=== PATIENT | female | born 1950 | race Caucasian/White ===

== ENCOUNTER 2017-07-06 01:57 | Emergency (ER) | payer MEDICARE, OTHER ==
[~2017-07-06] VITALS: Ht 172.7 cm; Wt 80.0 kg
[~2017-07-06 01:57] MED LIST: ASPI81TA11 PO; ATOR20TA42 PO; CARI350T19 PO; IBUP800T23 PO
[2017-07-06 02:08] VITALS: BP 224/95; PULSE 61; RESP 16; TEMP 97.6; O2SAT 97
--- NOTE | 2017-07-06 02:36 | PD ---
HPI Chief Complaint: Dizziness Time Seen by Provider: 02:27 Travel History International Travel<30 days: No Contact w/Intl Traveler<30days: No Traveled to known affect area: No History of Present Illness HPI Patient is a 67-year-old female presents emergency department for evaluation of dizziness. Patient states that started fairly suddenly this morning. She states it has been going on intermittently for the past 24 hours. She states worsening whenever she is in a supine position and turns her head. She also endorses some mild diarrhea which is resolved and thought maybe this was contributing to it. No chest pain or shortness of breath no focalized weakness no difficulty ambulating. She states it feels like the room spinning around her. Symptoms moderate, intermittent, associated signs symptoms as above aggravated by movement and alleviated by rest. PFSH Past Medical History High Cholesterol: Yes Diminished Hearing: No Hypertension: Yes Musculoskeletal: Yes (chronic back pain) Tetanus Vaccination: Unknown Influenza Vaccination: No ?: Not LMP: menapause Past Surgical History Surgical History: No Previous Surgery Social History Alcohol Use: No Tobacco Use: Yes (/2 PPD) Substance Use: No Allergies-Medications (Allergen,Severity, Reaction): Coded Allergies: No Known Allergies (Unverified Adverse Reaction, Unknown, 07/06/17) Reported Meds & Prescriptions Reported Meds & Active Scripts Active Meclizine (Meclizine HCl) 25 Mg Tab 25 Mg PO TID PRN Review of Systems Except as stated in HPI: all other systems reviewed are Neg Physical Exam Narrative GENERAL: Well-nourished, well-developed patient. SKIN: Focused skin assessment warm/dry. HEAD: Normocephalic. EYES: No scleral icterus. No injection or drainage. ENT: TMs clear bilaterally, oropharynx clear moist. NECK: Supple, trachea midline. No JVD or lymphadenopathy. CARDIOVASCULAR: Regular rate and rhythm without murmurs, gallops, or rubs. RESPIRATORY: Breath sounds equal bilaterally. No accessory muscle use. GASTROINTESTINAL: Abdomen soft, non-tender, nondistended. MUSCULOSKELETAL: No cyanosis, or edema. Neurological: Cranial nerves II through XII grossly intact and nonfocal, 5 out of 5 strength in all 4 extremities, cerebellar testing with [id number] and heel noonan testing negative, ambulates with an even narrow-base gait. BACK: Nontender without obvious deformity. No CVA tenderness. Data Data Last Documented VS Vital Signs Date Time Temp Pulse Resp B/P (MAP) Pulse Ox O2 Delivery O2 Flow Rate FiO2 07/06/17 02:08 97.6 61 16 224/95 (138) 97 Orders Orders Meclizine (Antivert) (07/06/17 02:45) Diazepam (Valium) (07/06/17 02:45) Ed Discharge Order (07/06/17 04:35) MDM Medical Decision Making Medical Screen Exam Complete: Yes Emergency Medical Condition: Yes Differential Diagnosis Vertigo, cerebellar stroke unlikely, electrolyte abdomen highly unlikely, hypertensive emergency unlikely. Narrative Course Patient room to the emergency department, she appears well in no obvious distress. Symptoms positional highly consistent with vertigo. Given meclizine and Valium and symptoms were completely relieved. She is very grateful. I do not think there is any indication further workup with this patient at this time. Discussed need follow-up with an ear nose and throat doctor symptomatic management at home, Dayan maneuver handout given. She is stable for discharge Discussed with the patient her blood pressure is significantly elevated and needs further management as an outpatient. Discussed follow-up with the [facility]. No indication to emergently lower her blood pressure is not having any signs of endorgan failure peer Diagnosis Primary Impression: Vertigo Additional Impression: Hypertension Referrals: Benito Garcia MD [facility] Med/Other Pt SpecificInfo: Prescription(s) given Scripts Meclizine (Meclizine) 25 Mg Tab 25 MG PO TID Y for VERTIGO, #20 TAB 0 Refills Prov: Buddy Munoz MD 07/06/17 Disposition: 01 DISCHARGE HOME Condition: Stable Buddy Munoz MD July 06, 2017 02:36
[2017-07-06] MEDS ORDERED: MECLIZINE HCL 25 MG TAB PO ONE (02:45)
[2017-07-06] MEDS ORDERED: DIAZEPAM 5 MG TAB PO ONE (02:45)
[2017-07-06] MEDS ORDERED: MECL-62 PO (04:25)
== END 2017-07-06 04:57 | disposition home or self-care (01) ==
LOC: NEPC 01:57
DX: R42 Dizziness and giddiness (principal); I10 Essential (primary) hypertension; F17.200 Nicotine dependence, unspecified, uncomplicated
CPT/HCPCS: 99283

== ENCOUNTER 2017-10-31 23:44 | Observation (INO) ==
--- NOTE | 2017-11-01 00:06 | ED ---
HPI General Chief complaint: Chest Pain Stated complaint: chest pain/sob Time Seen by Provider: 11/01/17 00:04 Source: patient History of Present Illness HPI narrative: The patient is a 67 year old female who presents to the [facility] emergency department with a history of hypertension and chronic back pain c/o left chest wall pain. The pain began 3 weeks ago, intermittently, as a sharp, shooting pain. Today it became acutely worse, /10, which brought her to seek care. She also endorses a non-productive cough, lymph node swelling and sore throat for 3 weeks duration for which she was seen by her primary and given amoxicillin 875 mg TID. The pateint denies having any prior history of coronary artery disease. She reports that she last had a stress test approximately 3 years ago. The patient reports having a history of tobacco use and hypertension. She denies having any prior history of DVT or PE. Related Data Home Medications Medication Instructions Recorded Confirmed amoxicillin 875 mg PO TID 11/01/17 11/01/17 meclizine 25 mg PO TID PRN 11/01/17 11/01/17 Allergies Allergy/AdvReac Type Severity Reaction Status Date / Time No Known Allergies Unknown Uncoded 07/06/17 02:08 Review of Systems Constitutional Denies body ache(s), Denies excessive sweating, Denies fatigue, Denies fever(s) and Denies weakness Eyes Denies blurry vision and Denies change in vision ENT Reports system reviewed and no additional complaints, except as [facility] Cardiovascular Reports system reviewed and no additional complaints, except as [facility], Denies syncope, Denies leg edema, Denies lightheadedness, Denies radiating jaw, neck or arm pain, Denies palpitations and Denies dyspnea Respiratory Reports cough, Denies hemoptysis, Reports excessive phlegm production and Reports pain with cough Gastrointestinal Reports system reviewed and no additional complaints, except as [facility] Genitourinary Reports system reviewed and no additional complaints, except as [facility] Musculoskeletal Reports back pain Integumentary/Breasts Reports system reviewed and no additional complaints, except as [facility] Neurologic Reports system reviewed and no additional complaints, except as [facility] Psychiatric Reports system reviewed and no additional complaints, except as [facility] Endocrine Reports system reviewed and no additional complaints, except as [facility] Hematologic/Lymphatic Reports system reviewed and no additional complaints, except as [facility] Medical History Medical History Back pain (Acute) HTN (hypertension) (Acute) Social History Social History Substance History: No History of Abuse Second Hand Smoke Exposure: No Smoking Status: Current every day smoker Tobacco Type: Cigarettes Packs Per Day: 1 Cigarettes Per Day: 20.0 Years Smoked: 50 Pack-Years: 50.00 How Often Do You Have a Drink Containing Alcohol: Never Hx Recent Travel: No Exam Const General: cooperative, well developed and in distress Nutritional Appearance: well nourished Orientation: alert, awake and oriented x3 HENMT Head: normal to inspection and normocephalic Ears: hearing grossly normal bilaterally Nose: external nose normal and nasal mucous membranes and turbinates normal Face and sinus: normal facial exam and sinuses nontender Mouth: oral mucosae normal Teeth and gingiva: dentition normal Throat: posterior oropharynx normal Eyes General: appearance normal, both eyes and all related structures Pupils: PERRL Neck Neck: normal visual inspection, supple and lymphadenopathy Thyroid: thyroid normal Carotids: normal carotid upstroke Lymphatic: lymphadenopathy Chest Chest: normal inspection of the chest and tenderness (left chest wall from midaxilliary to midclavicular) Breast inspection: normal inspection of the breasts Resp Effort & Inspection: normal respiratory effort Auscultation: clear to auscultation bilaterally Cardio Rate: regular rate Rhythm: regular rhythm Heart Sounds: S1 normal and S2 normal Pulses: posterior tibial pulses present GI Inspection: normal to inspection and visible herniation (umbilical, reducible) Palpation: soft Auscultation: normal bowel sounds Skin General: no rashes or lesions noted Neuro General: alert, awake and oriented x3 Motor: muscle tone normal throughout Sensory Exam: no sensory deficits noted Extrem General: normal to inspection Right upper extremity: normal to inspection Left upper extremity: normal to inspection Right lower extremity: normal to inspection Left lower extremity: normal to inspection Course Initial Documented Vital Signs Temperature 99.9 F H 10/31/17 23:52 Pulse Rate 84 10/31/17 23:52 Respiratory Rate 20 10/31/17 23:52 Blood Pressure 200/88 H 10/31/17 23:52 Pulse Oximetry 97 10/31/17 23:52 Last Documented Vital Signs Temperature 98.9 F 11/01/17 08:00 Pulse Rate 56 L 11/01/17 08:01 Respiratory Rate 18 11/01/17 08:00 Blood Pressure 133/61 11/01/17 08:00 Pulse Oximetry 96 11/01/17 08:00 Medical Decision Making MDM Narrative Medical decision making narrative: During the course of the patient's emergency department visit, the patient's history, examination, and differential diagnosis were reviewed with the patient. The patient was placed on a radiological metallurgist with oximetry and frequent blood pressure monitoring. The patient had IV access obtained and blood work sent for analysis. An evaluation was started regarding the patient's left-sided chest pain. The patient was initially provided aspirin 324 mg p.o. 1, nitroglycerin sublingual 1, normal saline at 500 mL bolus 1. Diagnostic evaluation is remarkable for chest x-ray that no acute cardiopulmonary disease. CTA to rule out PE was ordered. White count is within normal limits with the monocytosis at 9, platelets within normal limits, hemoglobin normal at 13.2, Coagulation studies are unremarkable except for a d- dimer that is elevated at 0.61, chemistries remarkable for a normal troponin I, less than 0.02, GFR is 56, chloride 109, calcium 8.0, alk phos 129, albumin 3.1 , urinalysis is unremarkable. CTA to rule out PE shows no evidence of pulmonary embolism is negative for pulmonary embolism, however focal subpleural left upper airspace consolidation is noted. The appearance is nonspecific but infectious process could have this appearance. The patient does report having a cough for the last 3 weeks. She will be treated with Zithromax 500 p.o. 1 and complete a full course of antibiotic for atypical organisms. The patient had completed a course of amoxicillin previously. The patient's results were discussed with the patient, including the plan of care. I explained that further testing and/ or monitoring is indicated based on the patient's history, examination, and/ or laboratory findings. Therefore, I recommended admission for additional evaluation. The patient expressed understanding and was agreeable with this plan. The patient was admitted to the hospital in stable condition and sent to a bed under the care of [facility]. Medical Screen Exam Complete: Yes Emergency Medical Condition: Yes Lab Data Result diagrams: 11/01/17 00:54 11/01/17 00:54 Lab Results 09/06/1511/01/17 11/01/17 Range/Units 00:54 00:54 00:54 WBC 8.1 (4.0-11.0) th/mm3 RBC 4.70 (4.00-5.30) mil/mm3 Hgb 13.2 (11.6-15.3) gm/dL Hct 39.9 (35.0-46.0) % MCV 84.9 (80.0-100.0) fL MCH 28.1 (27.0-34.0) pg MCHC 33.1 (32.0-36.0) % RDW 14.3 (11.6-17.2) % Plt Count 190 (150-450) th/mm3 MPV 9.3 (7.0-11.0) fL Neut % (Auto) 68.6 (16.0-70.0) % Lymph % (Auto) 19.0 (9.0-44.0) % Blanco % (Auto) 9.0 H (0.0-8.0) % Eos % (Auto) 3.0 (0.0-4.0) % Baso % (Auto) 0.4 (0.0-2.0) % Neut # (Auto) 5.6 (1.8-7.7) th/mm3 Lymph # (Auto) 1.5 (1.0-4.8) th/mm3 Blanco # (Auto) 0.7 (0.0-0.9) th/mm3 Eos # (Auto) 0.2 (0.0-0.4) th/mm3 Baso # (Auto) 0.0 (0.0-0.2) th/mm3 WBC Differential . Differential Comment Auto diff final PT (9.8-11.6) sec INR Ratio APTT (24.3-30.1) sec D-Dimer Quant (PE/DVT) 0.61 H (0.00-0.50) mg/L FEU Sodium 144 (136-145) meq/L Potassium 4.2 (3.5-5.1) meq/L Chloride 109 H (98-107) meq/L Carbon Dioxide 26.6 (21.0-32.0) meq/L Anion Gap 8 (5-15) meq/L BUN 13 (7-18) mg/dL Creatinine 0.99 (0.50-1.00) mg/dL Estimated GFR 56 L (>89) mL/min Random Glucose 121 H (74-106) mg/dL Calcium 8.0 L (8.5-10.1) mg/dL Magnesium 2.2 (1.5-2.5) mg/dL Total Bilirubin 0.3 (0.2-1.0) mg/dL AST 16 (15-37) U/L ALT 27 (10-53) U/L Alkaline Phosphatase 129 H (45-117) U/L Total Creatine Kinase 130 (26-192) U/L CK-MB (CK-2) Less than 1.0 (0.5-3.6) ng/mL Troponin I Less than 0.02 L (0.02-0.05) ng/mL B-Natriuretic Peptide (0-100) pg/mL Total Protein 7.0 (6.4-8.2) g/dL Albumin 3.1 L (3.4-5.0) g/dL Lipase 125 (73-393) U/L Urine Color (Yellw/Straw) Urine Clarity (Clear) Urine pH (5.0-8.5) Ur Specific [place] (1.002-1.035) Urine Protein (Neg-Trace) mg/dL Urine Glucose (UA) (Negative) mg/dL Urine Ketones (Negative) mg/dL Urine Occult Blood (Negative) Urine Nitrate (Negative) Urine Bilirubin (Negative) Urine Urobilinogen (Less than 2) mg/dL Ur Leukocyte Esterase (Negative) Urine RBC (0-3) /hpf Urine WBC (0-5) /hpf Urine Mucus (Occasional) /lpf Micro UA Comment Ur Microscopic Review Urine Culture Comments 11/01/17 11/01/17 11/01/17 Range/Units 00:54 00:54 01:47 WBC (4.0-11.0) th/mm3 RBC (4.00-5.30) mil/mm3 Hgb (11.6-15.3) gm/dL Hct (35.0-46.0) % MCV (80.0-100.0) fL MCH (27.0-34.0) pg MCHC (32.0-36.0) % RDW (11.6-17.2) % Plt Count (150-450) th/mm3 MPV (7.0-11.0) fL Neut % (Auto) (16.0-70.0) % Lymph % (Auto) (9.0-44.0) % Blanco % (Auto) (0.0-8.0) % Eos % (Auto) (0.0-4.0) % Baso % (Auto) (0.0-2.0) % Neut # (Auto) (1.8-7.7) th/mm3 Lymph # (Auto) (1.0-4.8) th/mm3 Blanco # (Auto) (0.0-0.9) th/mm3 Eos # (Auto) (0.0-0.4) th/mm3 Baso # (Auto) (0.0-0.2) th/mm3 WBC Differential Differential Comment PT 9.4 L (9.8-11.6) sec INR 0.9 Ratio APTT 27.6 (24.3-30.1) sec D-Dimer Quant (PE/DVT) (0.00-0.50) mg/L FEU Sodium (136-145) meq/L Potassium (3.5-5.1) meq/L Chloride (98-107) meq/L Carbon Dioxide (21.0-32.0) meq/L Anion Gap (5-15) meq/L BUN (7-18) mg/dL Creatinine (0.50-1.00) mg/dL Estimated GFR (>89) mL/min Random Glucose (74-106) mg/dL Calcium (8.5-10.1) mg/dL Magnesium (1.5-2.5) mg/dL Total Bilirubin (0.2-1.0) mg/dL AST (15-37) U/L ALT (10-53) U/L Alkaline Phosphatase (45-117) U/L Total Creatine Kinase (26-192) U/L CK-MB (CK-2) (0.5-3.6) ng/mL Troponin I (0.02-0.05) ng/mL B-Natriuretic Peptide 13 (0-100) pg/mL Total Protein (6.4-8.2) g/dL Albumin (3.4-5.0) g/dL Lipase (73-393) U/L Urine Color Straw (Yellw/Straw) Urine Clarity Clear (Clear) Urine pH 6.0 (5.0-8.5) Ur Specific [place] 1.006 (1.002-1.035) Urine Protein Negative (Neg-Trace) mg/dL Urine Glucose (UA) Negative (Negative) mg/dL Urine Ketones Negative (Negative) mg/dL Urine Occult Blood Small H (Negative) Urine Nitrate Negative (Negative) Urine Bilirubin Negative (Negative) Urine Urobilinogen Less than 2 (Less than 2) mg/dL Ur Leukocyte Esterase Negative (Negative) Urine RBC Less than 1 (0-3) /hpf Urine WBC Less than 1 (0-5) /hpf Urine Mucus Few H (Occasional) /lpf Micro UA Comment Culture not ind Ur Microscopic Review Not Reportable Urine Culture Comments Culture not ind 11/01/17 11/01/17 Range/Units 03:46 06:50 WBC (4.0-11.0) th/mm3 RBC (4.00-5.30) mil/mm3 Hgb (11.6-15.3) gm/dL Hct (35.0-46.0) % MCV (80.0-100.0) fL MCH (27.0-34.0) pg MCHC (32.0-36.0) % RDW (11.6-17.2) % Plt Count (150-450) th/mm3 MPV (7.0-11.0) fL Neut % (Auto) (16.0-70.0) % Lymph % (Auto) (9.0-44.0) % Blanco % (Auto) (0.0-8.0) % Eos % (Auto) (0.0-4.0) % Baso % (Auto) (0.0-2.0) % Neut # (Auto) (1.8-7.7) th/mm3 Lymph # (Auto) (1.0-4.8) th/mm3 Blanco # (Auto) (0.0-0.9) th/mm3 Eos # (Auto) (0.0-0.4) th/mm3 Baso # (Auto) (0.0-0.2) th/mm3 WBC Differential Differential Comment PT (9.8-11.6) sec INR Ratio APTT (24.3-30.1) sec D-Dimer Quant (PE/DVT) (0.00-0.50) mg/L FEU Sodium (136-145) meq/L Potassium (3.5-5.1) meq/L Chloride (98-107) meq/L Carbon Dioxide (21.0-32.0) meq/L Anion Gap (5-15) meq/L BUN (7-18) mg/dL Creatinine (0.50-1.00) mg/dL Estimated GFR (>89) mL/min Random Glucose (74-106) mg/dL Calcium (8.5-10.1) mg/dL Magnesium (1.5-2.5) mg/dL Total Bilirubin (0.2-1.0) mg/dL AST (15-37) U/L ALT (10-53) U/L Alkaline Phosphatase (45-117) U/L Total Creatine Kinase 106 184 (26-192) U/L CK-MB (CK-2) (0.5-3.6) ng/mL Troponin I Less than 0.02 L Less than 0.02 L (0.02-0.05) ng/mL B-Natriuretic Peptide (0-100) pg/mL Total Protein (6.4-8.2) g/dL Albumin (3.4-5.0) g/dL Lipase (73-393) U/L Urine Color (Yellw/Straw) Urine Clarity (Clear) Urine pH (5.0-8.5) Ur Specific [place] (1.002-1.035) Urine Protein (Neg-Trace) mg/dL Urine Glucose (UA) (Negative) mg/dL Urine Ketones (Negative) mg/dL Urine Occult Blood (Negative) Urine Nitrate (Negative) Urine Bilirubin (Negative) Urine Urobilinogen (Less than 2) mg/dL Ur Leukocyte Esterase (Negative) Urine RBC (0-3) /hpf Urine WBC (0-5) /hpf Urine Mucus (Occasional) /lpf Micro UA Comment Ur Microscopic Review Urine Culture Comments Imaging Data Radiologist's impression: Myocardial Perfusion Scan Nuc Med 11/01/17 00:00 CONCLUSION: 1. Unremarkable myocardial perfusion examination. Chest X-Ray 11/01/17 00:35 CONCLUSION: Stable chest x-ray. No acute cardiopulmonary abnormality is identified. Chest CTA 11/01/17 01:57 CONCLUSION: 1. No PE is identified. 2. Focal subpleural left upper lobe airspace consolidation. The appearance is nonspecific but infectious process could have this appearance in the appropriate clinical setting. Suggest follow-up chest CT to confirm resolution. 3. There are findings indicative of prior granulomatous infection. ECG Data Attestation: I personally reviewed and interpreted this ECG as follows: Interpretation: The patient had an EKG done on arrival that shows a sinus rhythm heart rate of 68, QRS duration 97 ms, QTC 388 ms. T waves are inverted in V1, V2. Discharge Plan Discharge Disposition Patient Disposition: 30 Still Patient Discharge Condition Condition: Good Discharge Order Discharge Orders: Discharge Order (Routine); Ordered 11/01/17 Ordered By: Paola Nguyen Discharge Details Anticipated Discharge Date: 11/01/17 Diagnosis: Chest pain, rule out acute myocardial infarction Physicians Team ED Provider: Carla Foster Primary Care Provider: Kalyani Grace Attending Provider: Taqueria June Status ED Status: Left Department Discharge Information Discharge Date/Time: 11/01/17 03:40
[2017-11-01] MEDS ORDERED: Sodium Chlor 0.9% Inj 500 ML IV.SIG ONE (00:35)
[2017-11-01 01:14] LABS: Baso % (Auto) 0.4 % (0.0-2.0); Eos # (Auto) 0.2 th/mm3 (0.0-0.4); Hematocrit 39.9 % (35.0-46.0); Hemoglobin 13.2 gm/dL (11.6-15.3); Lymph # (Auto) 1.5 th/mm3 (1.0-4.8); Mean Corpuscular HGB Conc 33.1 % (32.0-36.0); Mean Corpuscular Hemoglobin 28.1 pg (27.0-34.0); Mean Corpuscular Volume 84.9 fL (80.0-100.0); Mean Platelet Volume 9.3 fL (7.0-11.0); Mono # (Auto) 0.7 th/mm3 (0.0-0.9); Neut # (Auto) 5.6 th/mm3 (1.8-7.7); Neut % (Auto) 68.6 % (16.0-70.0); Platelet Count 190 th/mm3 (150-450); Red Cell Distribution Width 14.3 % (11.6-17.2); White Blood Count 8.1 th/mm3 (4.0-11.0)
[2017-11-01 01:28] LABS: Albumin 3.1 g/dL (3.4-5.0); Anion Gap 8 meq/L (5-15); Aspartate Aminotransferase 16 U/L (15-37); Blood Urea Nitrogen 13 mg/dL (7-18); Carbon Dioxide 26.6 meq/L (21.0-32.0); Chloride 109 meq/L (98-107); Glomerular Filtration Rate 56 mL/min (>89); Glucose,Random 121 mg/dL (74-106); Lipase 125 U/L (73-393); Magnesium 2.2 mg/dL (1.5-2.5); Potassium 4.2 meq/L (3.5-5.1); Sodium 144 meq/L (136-145)
[2017-11-01 01:33] LABS: Alanine Aminotransferase 27 U/L (10-53); Alkaline Phosphatase 129 U/L (45-117); Creatine Kinase 130 U/L (26-192)
[2017-11-01 01:34] LABS: Activated Partial Thrombo Time 27.6 sec (24.3-30.1); INR 0.9 Ratio; Prothrombin Time 9.4 sec (9.8-11.6)
--- NOTE | 2017-11-01 01:41 | XR ---
EXAM DATE: 11/01/2017 1:38 AM EDT AGE/SEX: 67 years / Female INDICATIONS: Chest pain and shortness of breath. CLINICAL DATA: This is the patient's initial encounter. Patient reports that signs and symptoms have been present for 3 days and indicates a pain score of 0/10. MEDICAL/SURGICAL HISTORY: None. None. COMPARISON: [facility], XR CHEST PA AND LAT, 08/22/2017. . FINDINGS: Portable AP view of the chest demonstrates a normal-sized cardiac silhouette. No effusion, consolidat ion, or pneumothorax is identified. Stable densely calcified nodule overlies the left lower lung zone . The bones and soft tissues demonstrate no acute abnormality. CONCLUSION: Stable chest x-ray. No acute cardiopulmonary abnormality is identified. Electronically signed by: Jj Brennan MD 11/01/2017 1:40 AM EDT
[2017-11-01 02:00] LABS: Bilirubin,Urine Negative (Negative); Clarity,Urine Clear (Clear); Color,Urine Straw (Yellw/Straw); Glucose,Urine (UA) Negative (Negative); Leukocyte Esterase,Urine Negative (Negative); Mucus,Urine Few /lpf (Occasional); Nitrite,Urine Negative (Negative); Specific Gravity,Urine 1.006 (1.002-1.035)
--- NOTE | 2017-11-01 03:26 | CT ---
EXAM DATE: 11/01/2017 3:17 AM EDT AGE/SEX: 67 years / Female INDICATIONS: Chest pain, shortness of breath. CLINICAL DATA: This is the patient's initial encounter. Patient reports that signs and symptoms have been present for 1 day and indicates a pain score of 5/10. MEDICAL/SURGICAL HISTORY: Hypertension. None. RADIATION DOSE: 22.93 CTDI (mGy) COMPARISON: No prior exams available for comparison. TECHNIQUE: Volumetric scanning was performed using a multi-row detector CT scanner during bolus infu bianca of 75 ml Omnipaque 350 (iohexol) nonionic water-soluble contrast as a single exam dose. The kris a was post processed with a variety of visualization algorithms including full volume maximum intensi ty projection and sliding thin slab reformation. Using automated exposure control and adjustment of the mA and/or kV according to patient size, radiation dose was kept as low as reasonably achievable t o obtain optimal diagnostic quality images. DICOM format image data is available electronically for review and comparison. FINDINGS: Pulmonary Arteries: No filling defect is identified through the segmental and some of the subsegmenta l level pulmonary arteries. Lungs: There is focal subpleural airspace consolidation in the left upper lobe measuring approximate ly 2 cm. No pneumothorax is present. There are calcified granulomas bilaterally. Mediastinum: The heart and great vessels demonstrate no acute abnormality. No lymphadenopathy is vis ualized. There are calcified lymph nodes in the hilar region bilaterally. Mild to moderate atheroscle rotic disease is present throughout the aorta. Pleurae: No pleural effusion or pleural thickening. Axillae: No lymphadenopathy. Musculoskeletal: No acute osseous abnormality is identified. There are degenerative changes of the t horacic spine. Other: Visualized upper abdominal structures demonstrate no acute abnormality. There are innumerable punctate calcifications within the liver and spleen. Partially visualized left upper pole renal cyst s are present measuring up to 2.2 cm. CONCLUSION: 1. No PE is identified. 2. Focal subpleural left upper lobe airspace consolidation. The appearance is nonspecific but infect ious process could have this appearance in the appropriate clinical setting. Suggest follow-up chest CT to confirm resolution. 3. There are findings indicative of prior granulomatous infection. Electronically signed by: Jj Brennan MD 11/01/2017 3:24 AM EDT
[2017-11-01] MEDS ORDERED: Azithromycin 250 MG Tablet PO ONE (03:28)
[2017-11-01] MEDS ORDERED: Acetaminophen 500 MG Tablet PO PRN (03:33)
[2017-11-01 04:17] LABS: Creatine Kinase 106 U/L (26-192)
[2017-11-01 05:26] VITALS: O2SAT 96
[2017-11-01 07:48] LABS: Creatine Kinase 184 U/L (26-192)
[2017-11-01 08:10] VITALS: BP 133/61; RESP 18; TEMP 98.9
--- NOTE | 2017-11-01 08:36 | P.HPCA ---
History of Present Illness Primary Care Physician: Kalyani Grace MD Chief Complaint: Chest pain History of Present Illness: 67 year old female with history of hypertension and current smoker presents emergency room for further evaluation of left-sided chest pain. Onset 3 weeks ago. Location left inframammary area. Characterized as sharp shooting pain made worse with inspiration, coughing, and palpation area. Duration constant. No associated symptoms of nausea, vomiting, dyspnea, or diaphoresis. No recent illness, fever, or injury. Denies similar pain in the past. No precipitating or relieving factors. Endorses currently taking amoxicillin prescribed by her primary care provider due to nonproductive cough and lymph node swelling. Endorses stopping blood pressure medication due to fatigue and dizziness, has not notified her PCP of this. No known coronary artery disease, diabetes, or hyperlipidemia. Past cardiac testing None Social history Current 1/2 pack smoker, endorses 2-3 packs/daily when she was younger. No alcohol or recreational drug use. Endorses sedentary lifestyle. Family history Noncontributory for early onset cardiovascular disease. Mother age 63-[place]. Father age 63-lung cancer - Diagnosis (1) Musculoskeletal chest pain (2) Tobacco use (3) History of hypertension Review of Systems All other systems reviewed negative except as stated in HPI PMFSH - History History Provided By: Patient - Medical / Surgical Hx Neg / Unobtainable Surgical History: No Previous Surgery - Medical History Medical History: Medical History (Last Reviewed 11/01/17 @ 11:58 by MARTIN Bean) Back pain HTN (hypertension) - Tobacco History Second Hand Smoke Exposure: No Tobacco Use In Past 30 Days: Yes Smoking Status: Current every day smoker Tobacco Type: Cigarettes Packs Per Day: 1 Cigarettes Per Day: 20.0 Years Smoked: 50 Pack Years: 50.00 - Alcohol History How Often Do You Have a Drink Containing Alcohol: Never - Substance Use History Substance History: No History of Abuse - Travel History History of Recent Travel: No - Immunization History Tetanus Immunization: <5 Years Hx Influenza Vaccine This Season: No Medications and Allergies Active Medications: Active Medications Acetaminophen (Tylenol) 500 mg PO Q4H PRN PRN Reason: HEADACHE Last Admin: 11/01/17 03:45 Dose: 500 mg Sodium Chloride (Ns Flush) 2 ml IV.FLUSH BID DAMIAN Sodium Chloride (Ns Flush) 2 ml IV.FLUSH PRN PRN PRN Reason: FLUSH AFTER USING IV ACCESS Allergies Allergy/AdvReac Type Severity Reaction Status Date / Time No Known Allergies Unknown Uncoded 07/06/17 02:08 Home Medications Medication Instructions Recorded Confirmed Type amoxicillin 875 mg PO TID 11/01/17 11/01/17 History meclizine 25 mg PO TID PRN 11/01/17 11/01/17 History Exam Vital signs: Vital Signs 10/31/17 23:52 11/01/17 00:22 11/01/17 04:00 Temperature 99.9 F H 98.8 F 98.8 F Pulse Rate 84 66 57 L Respiratory Rate 20 20 17 Blood Pressure 200/88 H 139/76 129/60 Pulse Oximetry 97 97 96 11/01/17 06:10 11/01/17 08:00 Temperature 98.9 F Pulse Rate 57 L Respiratory Rate 20 18 Blood Pressure 133/61 Pulse Oximetry 96 Intake & Output 10/31/17 11/01/17 11/01/17 18:59 06:59 18:59 Intake Total 500 / 500 Balance 500 / 500 Weight 81.647 kg Intake: IV 500 / 500 NS Inj 500 ML @ Wide Open IV. 500 / 500 SIG ONCE ONE Rx#:[id number] Other: # Voids 2 Date of Last Bowel Movement 11/11/17 Narrative: GENERAL: Alert WN, WD, NAD, pleasant, overweight female who appears older than stated age HEAD: NC, AT EYES: Sclera clear, conjunctiva without injection, pupils equal and round ENT: Mucous membranes pink and moist CV: RRR, without murmur, rub, gallop, no JVD. Chest wall pain easily reproduced with light palpation. RESP: Diminished lungs throughout bilateral, no crackles or wheeze, rhonchi cleared with coughing, symmetrical chest rise, nonlabored, able to speak in full sentences ABD: Soft, NT, ND, no masses, positive bowel tones EXT: Pulses +2x4, no dependent edema MS: Normal tone x4 extremities, no obvious deformities, full range of motion NEURO: CN II through CN XII grossly intact, motor strength 5/5 PSYCH: A+O x3, pleasant affect, appropriate speech, mood, insight and judgment SKIN: Normal turgor, normal texture, no lesions, no rashes Results 11/01/17 00:54 11/01/17 00:54 Cardiac Enzymes 11/01/17 11/01/17 11/01/17 Range/Units 00:54 00:54 03:46 AST 16 (15-37) U/L CK-MB (CK-2) Less than 1.0 (0.5-3.6) ng/mL Troponin I Less than 0.02 L Less than 0.02 L (0.02-0.05) ng/mL B-Natriuretic Peptide 13 (0-100) pg/mL 11/01/17 Range/Units 06:50 AST (15-37) U/L CK-MB (CK-2) (0.5-3.6) ng/mL Troponin I Less than 0.02 L (0.02-0.05) ng/mL B-Natriuretic Peptide (0-100) pg/mL Coagulation 11/01/17 11/01/17 Range/Units 00:54 00:54 PT 9.4 L (9.8-11.6) sec APTT 27.6 (24.3-30.1) sec B-Natriuretic Peptide 13 (0-100) pg/mL CBC 11/01/17 Range/Units 00:54 WBC 8.1 (4.0-11.0) th/mm3 RBC 4.70 (4.00-5.30) mil/mm3 Hgb 13.2 (11.6-15.3) gm/dL Hct 39.9 (35.0-46.0) % Plt Count 190 (150-450) th/mm3 Neut # (Auto) 5.6 (1.8-7.7) th/mm3 Lymph # (Auto) 1.5 (1.0-4.8) th/mm3 Powell # (Auto) 0.7 (0.0-0.9) th/mm3 Eos # (Auto) 0.2 (0.0-0.4) th/mm3 Baso # (Auto) 0.0 (0.0-0.2) th/mm3 Comprehensive Metabolic Panel 11/01/17 Range/Units 00:54 Sodium 144 (136-145) meq/L Potassium 4.2 (3.5-5.1) meq/L Chloride 109 H (98-107) meq/L Carbon Dioxide 26.6 (21.0-32.0) meq/L BUN 13 (7-18) mg/dL Creatinine 0.99 (0.50-1.00) mg/dL Calcium 8.0 L (8.5-10.1) mg/dL AST 16 (15-37) U/L ALT 27 (10-53) U/L Alkaline Phosphatase 129 H (45-117) U/L Total Protein 7.0 (6.4-8.2) g/dL Albumin 3.1 L (3.4-5.0) g/dL Intake and Output 10/31/17 11/01/17 11/01/17 22:59 06:59 14:59 Intake Total 500 / 500 Balance 500 / 500 Intake: IV 500 / 500 NS Inj 500 ML @ Wide Open IV. 500 / 500 SIG ONCE ONE Rx#:[id number] Other: # Voids 2 Date of Last Bowel Movement 11/11/17 Weight 81.647 kg EKG interpretations - EKG EKG results cardiology: sinus rhythm, normal axis, normal QRS, normal ST/T Caprini VTE Risk Assessment Caprini VTE Risk Assessment: Moderate/High Risk (score >= 2) Caprini Risk Assessment Model: Point Value = 1 Point Value = 2 Point Value = 3 Point Value = 5 Age 41-60 Minor surgery BMI > 25 kg/m2 Swollen legs Varicose veins or History of unexplained or recurrent spontaneous Oral contraceptives or hormone replacement Sepsis (< 1 month) Serious lung disease, including pneumonia (< 1 month) Abnormal pulmonary function Acute myocardial infarction Congestive heart failure (< 1 month) History of inflammatory bowel disease Medical patient at bed rest Age 61-74 Arthroscopic surgery Major open surgery (> 45 min) Laparoscopic surgery (> 45 min) Malignancy Confined to bed (> 72 hours) Immobilizing plaster cast Central venous access Age >= 75 History of VTE Family history of VTE Factor V Leiden Prothrombin 10055N Lupus anticoagulant Anticardiolipin antibodies Elevated serum homocysteine Heparin-induced thrombocytopenia Other congenital or acquired thrombophilia Stroke (< 1 month) Elective arthroplasty Hip, pelvis, or leg fracture Acute spinal cord injury (< 1 month) Prophylaxis Regimen: Total Risk Factor Score Risk Level Prophylaxis Regimen 0-1 Low Early ambulation 2 Moderate Order ONE of the following: *Sequential Compression Device (SCD) *Heparin 5000 units SQ BID 3-4 Higher Order ONE of the following medications: *Heparin 5000 units SQ TID *Enoxaparin/Lovenox 40 mg SQ daily (WT < 150 kg, CrCl > 30 mL/min) *Enoxaparin/Lovenox 30 mg SQ daily (WT < 150 kg, CrCl > 10-29 mL/min) *Enoxaparin/Lovenox 30 mg SQ BID (WT < 150 kg, CrCl > 30 mL/min) AND/OR *Sequential Compression Device (SCD) 5 or more Highest Order ONE of the following medications: *Heparin 5000 units SQ TID (Preferred with Epidurals) *Enoxaparin/Lovenox 40 mg SQ daily (WT < 150 kg, CrCl > 30 mL/min) *Enoxaparin/Lovenox 30 mg SQ daily (WT < 150 kg, CrCl > 10-29 mL/min) *Enoxaparin/Lovenox 30 mg SQ BID (WT < 150 kg, CrCl > 30 mL/min) AND *Sequential Compression Device (SCD) Assessment and Plan - Assessment (1) Musculoskeletal chest pain Code(s): R07.89 - Other chest pain Status: Acute Plan: Admitted chest pain center. ACS ruled out with 3 sets of EKGs and cardiac enzymes. Seen and evaluated by Dr. Nova Carmichael. Proceed with Lexiscan this morning, as patient is unable to walk on treadmill. If unremarkable, plans are to discharge home with follow-up with primary care provider. Verbalized understanding and agreeable to plan of care. (2) Tobacco use Code(s): Z72.0 - Tobacco use Status: Acute Plan: Strongly encouraged and stressed the importance of tobacco cessation. Instructed to quit smoking. (3) History of hypertension Code(s): Z86.79 - Personal history of other diseases of the circulatory system Status: Chronic Plan: Initially hypertensive in ER, since normalized. Instructed to notify her primary care provider of stopping blood pressure medication, discussing possible different type of medication. Encouraged smoking cessation, weight loss, low sodium diet, and increasing daily activity as able. H&P: Quality - VTE Deep Vein Thrombosis/Pulmonary Embolism Present on Admission: No
--- NOTE | 2017-11-01 08:36 | ECG ---
Date Performed: 11/01/2017 Time Performed: 03:46:56 PTAGE: 67 years EKG: SINUS BRADYCARDIA NONSPECIFIC T-WAVE ABNORMALITY BORDERLINE ECG Since PREVIOUS TRACING , no significant change noted DOCTOR: Nova Carmichael Interpretating Date/Time 11/01/2017 08:36:14
[2017-11-01] MEDS ORDERED: RESP: Albuterol Concentrated 2.5 MG/0.5 ML Neb NEB PRN (08:37)
--- NOTE | 2017-11-01 08:37 | ECG ---
Date Performed: 11/01/2017 Time Performed: 00:26:02 PTAGE: 67 years EKG: Sinus rhythm NONSPECIFIC T-WAVE ABNORMALITY BORDERLINE ECG NO PREVIOUS TRACING DOCTOR: Nova Carmichael Interpretating Date/Time 11/01/2017 08:36:45
--- NOTE | 2017-11-01 08:40 | ECG ---
Date Performed: 11/01/2017 Time Performed: 06:34:17 PTAGE: 67 years EKG: SINUS BRADYCARDIA NONSPECIFIC T-WAVE ABNORMALITY BORDERLINE ECG Since PREVIOUS TRACING , no significant change noted PREVIOUS TRACIN11/01/2017 03.46 DOCTOR: Nova Carmichael Interpretating Date/Time 11/01/2017 08:38:55
[2017-11-01] MEDS ORDERED: Regadenoson Inj 0.4 MG/5 ML Syringe IV.PUSH ONE (09:39)
--- NOTE | 2017-11-01 11:07 | NM ---
EXAM DATE: 11/01/2017 11:03 AM EDT AGE/SEX: 67 years / Female INDICATIONS:Angina. . Left chest pain. CLINICAL DATA: This is the patient's initial encounter. Patient reports that signs and symptoms have been present for 3 weeks and indicates a pain score of 10/10. MEDICAL/SURGICAL HISTORY: Hypertension. None. COMPARISON: No prior exams available for comparison. DOSE: 8.8 mCi Tc 99m Myoview at rest 26.3 mCi [id number] at stress 0.4 mg Lexiscan STRESS SYMPTOMS: None. EJECTION FRACTION: 54 % TECHNIQUE: The patient underwent pharmacologic stress with infusion of prescribed dose. Continuous ECG tracing was monitored during stress. Gated SPECT imaging was performed after stress and conventi onal SPECT imaging was performed at rest. The examination was performed on a SPECT/CT scanner, both attenuation and non-corrected datasets were reviewed. FINDINGS: Distribution: The maximum perfused segment at stress is in the inferior wall. Perfusion Study: The pattern of perfusion at stress is within normal limits. Gated Study: There are intact wall motion and wall thickening without hypokinetic or dyskinetic segm ents. The ejection fraction is calculated at 54%. RISK CATEGORY: Low (<1% Annual Motality Rate) CONCLUSION: 1. Unremarkable myocardial perfusion examination. Electronically signed by: Lencho Macias MD 11/01/2017 11:06 AM EDT
[2017-11-01 12:28] VITALS: PULSE 56
--- NOTE | 2017-11-01 16:50 | TR ---
Date Performed: 11/01/2017 Time Performed: 09:51:53 DOCTOR: Nova Carmichael DRUG LIST: CLINICAL HISTORY: REASON FOR TEST: REASON FOR ENDING: OBSERVATION: CONCLUSION: Lexiscan stress test was performed under standard four minute protocol. Radionuclid e was injected one minute prior to ending the test. No electrocardiographic abormalities were present to suggest ischemia. Nuclear imaging and interpretation are pending. COMMENTS: No electrocardiographic abormalities were present to suggest ischemia. Nuclear imagin g and interpretation are pending.
== END 2017-11-01 13:05 | disposition home or self-care (01) ==
LOC: NEDA 23:44 → NEPE 23:44 → NEPFCDU 11-01 03:40
PROVIDERS: ADMIT Internal Medicine Cardiovascular Disease; ATTEND Internal Medicine Cardiovascular Disease
DX: Z80.1 Family history of malignant neoplasm of trachea, bronchus and lung; M54.9 Dorsalgia, unspecified; G89.29 Other chronic pain; R94.31 Abnormal electrocardiogram [ECG] [EKG]; R07.89 Other chest pain; F17.210 Nicotine dependence, cigarettes, uncomplicated; I10 Essential (primary) hypertension